=== PATIENT | female | born 1965 | race Caucasian/White ===

== ENCOUNTER 2017-02-14 19:28 | Emergency (ER) | payer OTHER ==
[2017-02-14 19:33] VITALS: RESP 18; TEMP 98.2
--- NOTE | 2017-02-14 19:43 | EDPHY ---
H & P Stated Complaint: RLQ abd pain, since today, nausea HPI/ROS: CHIEF COMPLAINT: Abdominal pain HISTORY OF PRESENT ILLNESS: This is a generally healthy 51-year-old female who presents with 5 hours of abdominal pain. It began a few hours after eating lunch. The pain has been constant and dull. The pain was initially periumbilical but now seems to be more right-sided. It is associated with nausea, but no vomiting. She has not had diarrhea. She denies dysuria, urgency , or frequency. She has not had fever. Her daughter was recently treated for strep throat and she was concerned that she might be experiencing abdominal pain related to strep pharyngitis; she has not had sore throat. She did feel more fatigued than usual over the last few days, according to her . She reports a history of lupus that was diagnosed 1/2 years ago based upon blood work. At the time she was feeling achy and fatigued. She recently discontinued the medication that she was taking for treatment of lupus. She does not know the name of this medication. REVIEW OF SYSTEMS: A ten point review of systems was performed and is negative with the exception of the items mentioned in the HPI. Source: Patient Exam Limitations: No limitations - Personal History LMP (Females 10-55): 8-14 Days Ago Current Tetanus/Diphtheria Vaccine: Unsure Current Tetanus Diphtheria and Acellular Pertussis (TDAP): Unsure - Medical/Surgical History Hx Asthma: No Hx Chronic Respiratory Disease: No Hx Diabetes: No Hx Cardiac Disease: No Hx Renal Disease: No Hx Cirrhosis: No Hx Alcoholism: No Hx HIV/AIDS: No Hx Splenectomy or Spleen Trauma: No Other PMH: PMH: denies - Social History Smoking Status: Never smoked Drug Use: None Additional Social History: She lives with her and children. No tobacco use. - Physical Exam Exam: General Appearance: Alert. Vital signs reviewed. Eyes: Pupils equal and round, no conjunctival injection, no discharge. Anicteric. ENT, Mouth: Mucous membranes are moist, no oropharyngeal erythema or edema. Neck: No lymphadenopathy, supple. Respiratory: Lungs are clear to auscultation; no wheezes, rales, or rhonchi. Cardiovascular: Regular rate and rhythm; no murmur, rub, or gallop. Gastrointestinal: Abdomen is soft and mildly tender in the right upper quadrant and mid epigastrium, no guarding no masses or organomegaly, bowel sounds normal. Skin: Warm and dry, no rashes on exposed skin, normal color. Back: Nontender to palpation over the thoracolumbar spine. No CVAT. Extremities: No lower extremity edema, no calf tenderness or swelling. Neurological: Alert and oriented. Moving all four extremities easily and equally. Psychiatric: Normal affect. Constitutional: Initial Vital Signs Temperature (C) 36.8 C 02/14/17 19:29 Heart Rate 64 02/14/17 19:29 Respiratory Rate 18 02/14/17 19:29 Blood Pressure 107/58 L 02/14/17 19:29 O2 Sat (%) 97 02/14/17 19:29 O2 Delivery Mode Room Air Allergies/Adverse Reactions: No Known Allergies Allergy (Unverified 02/14/17 19:33) Home Medications: Medication Instructions Recorded Escitalopram Oxalate [Lexapro] 20 mg PO DAILY 02/14/17 celeCOXIB [Celebrex (*)] 200 mg PO BID 02/14/17 Cholecalciferol Vit D3 [Vitamin D3 2,000 units PO DAILY 02/15/17 (*)] Herbals/Supplements -Info Only 1 ea PO DAILY 02/15/17 Salem-3 Fatty Acids [Fish Oil 1000 1,000 mg PO HS 02/15/17 mg (*)] Salem-3 Fatty Acids [Fish Oil 1000 2,000 mg PO DAILY 02/15/17 mg (*)] Hydrocodone/APAP 5/325 [[place] 1 - 2 tab PO Q4HRS PRN #30 tab 02/16/17 5/325 (*)] Medical Decision Making ED Course/Re-evaluation: 8:45 p.m. patient re-evaluated. Abdomen is soft and nontender. Her nausea is improved. She has not had vomiting. I have reviewed her labs. Nothing to suggest cholecystitis or pancreatitis. White blood cell count is not elevated.. Appendicitis seems unlikely. Her pain was not in the region of the appendix at the time of my evaluation. Urinalysis is normal. I do not suspect pyelonephritis or urinary tract infection 9:30 p.m. reassessed patient. Abdomen benign. She feels okay to go home. She will receive a prepack for Zofran at discharge and strict return precautions should her pain worsen. I highly recommended reexamination tomorrow if her pain continues. She agrees with this plan. Differential Diagnosis: Abdominal pain including but not limited to appendicitis, cholecystitis, gastritis and urinary tract infection. - Data Points Laboratory Results: Laboratory Results 02/14/17 20:04 02/14/17 20:04 Medications Given: Discontinued Medications Ondansetron HCl (Zofran) 4 mg IVP EDNOW ONE Stop: 02/14/17 19:55 Last Admin: 02/14/17 20:07 Dose: 4 mg Ondansetron HCl (Zofran Odt 4 Mg Prepack#2) 1 btl TAKEHOME EDNOW ONE Stop: 02/14/17 21:41 Last Admin: 02/14/17 21:48 Dose: 1 btl Departure - Departure Disposition: Home, Routine, Self-Care Clinical Impression: Abdominal pain Qualifiers: Abdominal location: generalized Qualified Code(s): R10.84 - Generalized abdominal pain Condition: Good Instructions: Acute Nausea and Vomiting (ED), Acute Abdominal Pain (ED) Additional Instructions: If you have the return of abdominal pain, fever, persistent vomiting, profuse diarrhea, any new or concerning symptoms--you should be re-evaluated. I am prescribing Zofran for you to use at home if needed for nausea. Referrals: OLIVIER NUNES [Other] - As per Instructions
[2017-02-14] MEDS ORDERED: ONDANSETRON 4 MG/2 ML VIAL IVP ONE (19:54)
[2017-02-14 20:10] LABS: COLOR YELLOW; LEUKOCYTE ESTERASE,URINE NEGATIVE (NEGATIVE); NITRITE,URINE NEGATIVE (NEGATIVE)
[2017-02-14 20:30] LABS: ALANINE AMINOTRANSFERASE 28 IU/L (9-52); ALBUMIN 4.5 g/dL (3.5-5.0); ALKALINE PHOSPHATASE 48 IU/L (38-126); ANION GAP 10 mEq/L (8-16); ASPARTATE AMINOTRANSFERASE 35 IU/L (14-46); BILIRUBIN,TOTAL 0.9 mg/dL (0.1-1.4); BILIRUBIN-CONJUGATED 0.5 mg/dL (0.0-0.5); BILIRUBIN-UNCONJUGATED 0.4 mg/dL (0.0-1.1); CALCIUM 8.7 mg/dL (8.5-10.4); CARBON DIOXIDE 24 mEq/l (22-31); CHLORIDE 103 mEq/L (97-110); CREATININE 0.7 mg/dL (0.6-1.0); GLOMERULAR FILTRATION RATE > 60; GLUCOSE 101 mg/dL (70-100); POTASSIUM 3.9 mEq/L (3.5-5.2); SODIUM 137 mEq/L (134-144); TOTAL PROTEIN 7.4 g/dL (6.3-8.2)
[2017-02-14 20:31] LABS: % IMMATURE GRANULYOCYTES 0.3 % (0.0-1.1); ABSOLUTE IMMATURE GRANULOCYTES 0.02 10^3/uL (0.00-0.10); ADD DIFF? NO; ADD MORPH? NO; ADD SCAN? NO; ATYPICAL LYMPHOCYTE FLAG 10 (0-99); FRAGMENT RBC FLAG 0 (0-99); HEMATOCRIT 38.3 % (38.0-47.0); HEMOGLOBIN 12.8 g/dL (12.6-16.3); LEFT SHIFT FLG 0 (0-99); LIPEMIA HEMOLYSIS FLAG 80 (0-99); MEAN CELL HEMOGLOBIN 31.6 pg (27.9-34.1); MEAN CELL HEMOGLOBIN CONCENTR. 33.4 g/dL (32.4-36.7); MEAN CELL VOLUME 94.6 fL (81.5-99.8); MEAN PLATELET VOLUME 10.7 fL (8.7-11.7); PLATELET CLUMPS FLAG 10 (0-99); PLATELET COUNT 219 10^3/uL (150-400); RED BLOOD CELL COUNT 4.05 10^6/uL (4.18-5.33); RED CELL DISTRIBUTION WIDTH 12.1 % (11.5-15.2)
[2017-02-14] MEDS ORDERED: ONDANSETRON 4MG PREPACK#2 BTL TAKEHOME ONE (21:40)
[2017-02-14 21:50] VITALS: BP 112/82; PULSE 69; O2SAT 94
[2017-02-15] MEDS ORDERED: PROPOFOL 200 MG/20 ML VIAL ONE ×2 (13:22→13:44)
[2017-02-15] MEDS ORDERED: RANITIDINE 50 MG/2 ML VIAL ONE (13:22)
[2017-02-15] MEDS ORDERED: fentaNYL 100 MCG/2 ML INJ ONE ×2 (13:22)
[2017-02-15] MEDS ORDERED: DEXAMETHASONE 4 MG/ML VIAL ONE (13:22)
[2017-02-15] MEDS ORDERED: ROCURONIUM 50 MG/5 ML VIAL ONE (13:24)
[2017-02-15] MEDS ORDERED: METOCLOPRAMIDE 10 MG/2 ML VIAL ONE (13:30)
[2017-02-15] MEDS ORDERED: SUCCINYLCHOLINE CHLORIDE*ANESTHESIA ONLY*200 MG/10 ML SYR IVP ONE (13:35)
[2017-02-15] MEDS ORDERED: ONDANSETRON 4 MG/2 ML VIAL ONE (13:58)
[2017-02-15] MEDS ORDERED: NEOSTIGMINE METHYLSULFATE 5 MG/5 ML SYR ONE (14:03)
[2017-02-15] MEDS ORDERED: GLYCOPYRROLATE 0.2 MG/1 ML VIAL ONE (14:04)
== END 2017-02-14 21:50 | disposition home or self-care (01) ==
DX: R10.84 Generalized abdominal pain (principal)
CPT/HCPCS: 96374; J0330; J1100; J2405; J2704; J2710; J2765; J2780; J3010

== ENCOUNTER 2017-02-15 10:45 | Observation (INO) | payer OTHER ==
[2017-02-15] MEDS ORDERED: NS 1,000 ML IV ONE (11:50)
[2017-02-15] MEDS ORDERED: IOPAMIDOL (ISOVUE-300) 100 ML BTL ONE (11:50)
--- NOTE | 2017-02-15 11:50 | EDPHY ---
H & P Stated Complaint: periumbilical pain with RLQ tenderness x 2 days N/V Time Seen by Provider: 02/15/17 11:38 HPI/ROS: CHIEF COMPLAINT: Worsening abdominal pain HISTORY OF PRESENT ILLNESS: The patient presents to the emergency department complaining of worsening abdominal pain. The patient was seen in the ED last night with complaints of epigastric pain nausea and vomiting. At that point time she was noted to have normal laboratory studies and urinalysis. Her examination was not felt to be consistent with appendicitis but rather gastritis. She was discharged home with a prescription for Zofran. The patient returns today with complaints of worsening pain which appears to now be localized to the right lower quadrant. The patient denies any diarrhea. She denies significant past surgical history. The patient denies dysuria. She reports her pain is a 4/10 and worsened with movement. REVIEW OF SYSTEMS: A comprehensive 10 point review of systems is otherwise negative aside from elements mentioned in the history of present illness. Source: Patient - Personal History LMP (Females 10-55): 8-14 Days Ago Current Tetanus/Diphtheria Vaccine: Unsure Current Tetanus Diphtheria and Acellular Pertussis (TDAP): Unsure - Medical/Surgical History Hx Asthma: No Hx Chronic Respiratory Disease: No Hx Diabetes: No Hx Cardiac Disease: No Hx Renal Disease: No Hx Cirrhosis: No Hx Alcoholism: No Hx HIV/AIDS: No Hx Splenectomy or Spleen Trauma: No Other PMH: PMH: denies. no surgeries - Social History Smoking Status: Never smoked - Physical Exam Exam: General Appearance: Alert, no distress Eyes: Pupils equal and round no pallor or injection ENT, Mouth: Mucous membranes moist Respiratory: There are no retractions, lungs are clear to auscultation Cardiovascular: Regular rate and rhythm Gastrointestinal: Tenderness to palpation noted in the right lower quadrant, guarding present Neurological: A&O, normal motor function, normal sensory exam, normal cranial nerves Skin: Warm and dry, no rashes Musculoskeletal: Neck is supple nontender Extremities: symmetrical, full range of motion Constitutional: Initial Vital Signs Temperature (C) 37.0 C 02/15/17 10:56 Heart Rate 77 02/15/17 10:56 Respiratory Rate 16 02/15/17 10:56 Blood Pressure 93/55 L 02/15/17 10:56 O2 Sat (%) 95 02/15/17 10:56 O2 Delivery Mode Room Air Allergies/Adverse Reactions: No Known Allergies Allergy (Unverified 02/14/17 19:33) Home Medications: Medication Instructions Recorded CeleBREX 02/14/17 Lexapro 02/14/17 Medical Decision Making - Diagnostics Imaging Results: Imaging Impressions Abdomen CT 02/15/17 11:47 Impression: Acute appendicitis. Results called and discussed with Gen Nixon, at 02/15/2017 12:16 General information for patients regarding this examination can be found at [email or web address] [facility]. If you have questions or comments about this report, please contact me at [phone] (hospital) or [phone] (cell). ED Course/Re-evaluation: The patient presents to the ED with worsening abdominal pain. Last night she had primarily epigastric pain which is now worsened and localized to the right lower quadrant. As I evaluate the patient she had does have right lower quadrant tenderness. She does have a slight leukocytosis. A CT scan of the abdomen pelvis confirms a diagnosis of acute appendicitis without evidence of obvious perforation or abscess. The patient did receive IV morphine and a L of normal saline. Consultation was made with Dr. Harrington at 12:20 p.m.. The patient will be admitted to the hospital for appendectomy. I have ordered 1 g of IV Invanz at 12:30 p.m.. The patient has been kept npo. Differential Diagnosis: Differential diagnosis considered includes appendicitis, peritonitis, perforation, obstruction - Data Points Laboratory Results: Laboratory Results 02/15/17 11:20 02/15/17 11:20 02/15/17 02/15/17 11:20 11:20 WBC 9.82 10^3/uL H 10^3/uL (3.80-9.50) RBC 4.17 10^6/uL L 10^6/uL (4.18-5.33) Hgb 13.2 g/dL g/dL (12.6-16.3) Hct 39.2 % % (38.0-47.0) MCV 94.0 fL fL (81.5-99.8) MCH 31.7 pg pg (27.9-34.1) MCHC 33.7 g/dL g/dL (32.4-36.7) RDW 12.3 % % (11.5-15.2) Plt Count 204 10^3/uL 10^3/uL (150-400) MPV 10.5 fL fL (8.7-11.7) Neut % (Auto) 84.8 % H % (39.3-74.2) Lymph % (Auto) 7.9 % L % (15.0-45.0) Whitman % (Auto) 6.8 % % (4.5-13.0) Eos % (Auto) 0.0 % L % (0.6-7.6) Baso % (Auto) 0.1 % L % (0.3-1.7) Nucleat RBC Rel Count 0.0 % % (0.0-0.2) Absolute Neuts (auto) 8.32 10^3/uL H 10^3/uL (1.70-6.50) Absolute Lymphs (auto) 0.78 10^3/uL L 10^3/uL (1.00-3.00) Absolute Monos (auto) 0.67 10^3/uL 10^3/uL (0.30-0.80) Absolute Eos (auto) 0.00 10^3/uL L 10^3/uL (0.03-0.40) Absolute Basos (auto) 0.01 10^3/uL L 10^3/uL (0.02-0.10) Absolute Nucleated RBC 0.00 10^3/uL 10^3/uL (0-0.01) Immature Gran % 0.4 % % (0.0-1.1) Immature Gran # 0.04 10^3/uL 10^3/uL (0.00-0.10) Sodium 136 mEq/L mEq/L (134-144) Potassium 3.9 mEq/L mEq/L (3.5-5.2) Chloride 101 mEq/L mEq/L (97-110) Carbon Dioxide 27 mEq/l mEq/l (22-31) Anion Gap 8 mEq/L mEq/L (8-16) BUN 14 mg/dL mg/dL (7-23) Creatinine 0.7 mg/dL mg/dL (0.6-1.0) Estimated GFR > 60 Glucose 106 mg/dL H mg/dL (70-100) Calcium 8.7 mg/dL mg/dL (8.5-10.4) Medications Given: Discontinued Medications Sodium Chloride (Ns) 1,000 mls @ 0 mls/hr IV ONCE ONE PRN Reason: Wide Open Stop: 02/15/17 11:51 Last Admin: 02/15/17 12:02 Dose: 1,000 mls Morphine Sulfate (Morphine) 4 mg IVP EDNOW ONE Stop: 02/15/17 11:52 Last Admin: 02/15/17 12:11 Dose: Not Given Departure - Departure Disposition: [facility] Inpatient Acute Clinical Impression: Acute appendicitis Condition: Good Referrals: NONE *PRIMARY CARE P,. [Primary Care Provider] - As per Instructions
[2017-02-15 12:00] LABS: % IMMATURE GRANULYOCYTES 0.4 % (0.0-1.1); ABSOLUTE IMMATURE GRANULOCYTES 0.04 10^3/uL (0.00-0.10); ADD DIFF? NO; ADD MORPH? NO; ADD SCAN? NO; ATYPICAL LYMPHOCYTE FLAG 0 (0-99); FRAGMENT RBC FLAG 0 (0-99); HEMATOCRIT 39.2 % (38.0-47.0); HEMOGLOBIN 13.2 g/dL (12.6-16.3); LEFT SHIFT FLG 0 (0-99); LIPEMIA HEMOLYSIS FLAG 80 (0-99); MEAN CELL HEMOGLOBIN 31.7 pg (27.9-34.1); MEAN CELL HEMOGLOBIN CONCENTR. 33.7 g/dL (32.4-36.7); MEAN PLATELET VOLUME 10.5 fL (8.7-11.7); PLATELET CLUMPS FLAG 10 (0-99); PLATELET COUNT 204 10^3/uL (150-400); RED BLOOD CELL COUNT 4.17 10^6/uL (4.18-5.33); RED CELL DISTRIBUTION WIDTH 12.3 % (11.5-15.2)
[2017-02-15 12:08] LABS: ANION GAP 8 mEq/L (8-16); CALCIUM 8.7 mg/dL (8.5-10.4); CARBON DIOXIDE 27 mEq/l (22-31); CHLORIDE 101 mEq/L (97-110); CREATININE 0.7 mg/dL (0.6-1.0); GLOMERULAR FILTRATION RATE > 60; GLUCOSE 106 mg/dL (70-100); POTASSIUM 3.9 mEq/L (3.5-5.2); SODIUM 136 mEq/L (134-144)
[2017-02-15] MEDS ORDERED: ERTAPENEM 1 GM in NS 100 ML IV ONE (12:21)
[2017-02-15] MEDS ORDERED: BUPIVACAINE/EPI 0.25% 30 ML SDV ONE (12:33)
--- NOTE | 2017-02-15 13:00 | GHP ---
[f rep st] HISTORY AND PHYSICAL DATE OF ADMISSION: 02/15/2017 CHIEF COMPLAINT: Abdominal pain. HISTORY OF PRESENT ILLNESS: This is an otherwise healthy 51-year-old female who presents to the emergency department this afternoon with a chief complaint of 24 hours of abdominal pain. She states that she was going about her daily routine in her usual state of health and began to have this vague tyree- epigastric pain starting yesterday. Throughout the evening and through the night. The pain got worse and now has relocated to her right lower quadrant. She was nauseated for part of this time and vomited once last night with no resolution of pain. Because of the persistence and worsening pain, she presented to the emergency department today. She denies having any fevers or chills. Currently, describes the pain as a sharp pain. Worse with palpation in the right lower quadrant without rebound or radiation. 8/10 in intensity at its worst. She denies having any other symptoms at this point in time. PAST MEDICAL HISTORY: Significant for depression. PAST SURGICAL HISTORY: She had a diastasis repair approximately 1 year ago. CURRENT MEDICATIONS: Include Lexapro and celebrex ALLERGIES: None. REVIEW OF SYSTEMS: A full 10-point review was performed and unless explicitly stated is otherwise negative. SOCIAL HISTORY: Has 2 young daughters, 2 large dogs. Works as a program instructor. Denies illicit drug use. PHYSICAL EXAM: VITAL SIGNS: Temperature 37 even, blood pressure 93/55, heart rate 77, and she is 95% on room air. GENERAL: She is alert and oriented, in no acute distress. CV: She has a regular rate and rhythm without any murmurs. LUNGS: Clear to auscultation bilaterally. ABDOMEN: Soft, nondistended. Tender to palpation in the right lower quadrant without rebound tenderness. Equivocal guarding. Previous surgical scars consistent with surgical history. EXTREMITIES: Warm and well perfused. LABORATORY DATA: Leukocytosis 9000 with left shift. Chemistries are unremarkable. IMAGING: CT scan shows a dilated fluid-filled appendix in the right lower quadrant with surrounding stranding and with an associated appendicolith. No signs for perforation. ASSESSMENT AND PLAN: A 51-year-old female with what appears to be acute noncomplicated appendicitis. I have discussed the risks, benefits, and alternatives with the patient for laparoscopic appendectomy. She wishes to proceed. She will maintain n.p.o. status. She will receive IV antibiotics and we will proceed to the operating room as time permits. /[id number]/MODL MTDD
[2017-02-15] MEDS ORDERED: MIDAZOLAM 2 MG/2 ML VIAL ONE (13:20)
[2017-02-15] MEDS ORDERED: ONDANSETRON 4 MG/2 ML VIAL IVP PRN (14:25)
[2017-02-15] MEDS ORDERED: fentaNYL 100 MCG/2 ML INJ ONE (14:27)
--- NOTE | 2017-02-15 14:29 | POSTOPPROG ---
Post Op Note Date of Operation: 02/15/17 Surgeon: Blaze Harrington Anesthesiologist: Reece Anesthesia: GET(General Endotracheal) Pre-op Diagnosis: appendicitis Post-op Diagnosis: perforated appendicitis Procedure: lap appy Findings: appendix perforated during procedure Inf/Abcess present in the surg proc area at time of surgery?: No EBL: Minimal Specimen(s): appendix
[2017-02-15] MEDS ORDERED: D5W 1/2 NS W/ 20 KCl/L 1,000 ML IV SCH (14:30)
--- NOTE | 2017-02-15 15:05 | GOP ---
[f rep st] OPERATIVE REPORT DATE OF OPERATION: 02/15/2017 SURGEON: Blaze Harrington MD EDIPHONE OPERATOR: None. ANESTHESIA: General endotracheal. ANESTHESIOLOGIST: Dr. Newell. PREOPERATIVE DIAGNOSIS: Appendicitis. POSTOPERATIVE DIAGNOSIS: Perforated appendicitis. PROCEDURE PERFORMED: FINDINGS: The appendix was indurated upon manipulating it during the case. It was found to be perf orated. No gross spillage was identified. Abdomen was copiously irrigated. SPECIMENS: Appendix. ESTIMATED BLOOD LOSS: 5 cc. DESCRIPTION OF PROCEDURE: The patient was greeted in the preoperative suite. Once again, risks, be nefits, and alternatives were discussed. Consent was signed. She was then brought back to the oper ating room, placed on the OR table in a supine position. After all anesthesia machines were on and functioning, World Health [employer] time-out was performed. General endotracheal anesthesia was then induced without incident. The patient's abdomen was then widely prepped and draped in typical sterile fashion. Antibiotics were given on-call to the operating room. I entered the abdomen via a n infraumbilical cutdown through which the Veress needle was passed. I insufflated to 15 mmHg CO2, which was well tolerated by the patient. I then subsequently through this same site inserted a 12 m m Visiport. Once successfully in the abdomen I placed 2 other 5 mm trocars under direct visualizati on. One in the suprapubic, 1 in the left lower quadrant. Once these were in I identified the appen shabana by tracing the taeniae inferiorly. At the base of the appendix I identified a window using a Cecil ibanez dissector. Once this was done, I did notice that upon manipulating the appendix it was perfo rated and there was some gross spillage of pus into that localized site. This was irrigated immedia tely and washed out. After the appendix was transected from the cecal base using a single fire of t he Endo-SHELLY stapler, in the same fashion I amputated the mesoappendix with a white load of the same stapler. Once this was done, I placed it in an EndoCatch bag and removed it. I inspected both stap le lines which were clean, dry, intact and hemostatic. There was no gross spillage of pus in the pa tient's abdomen. I then irrigated the right lower quadrant and pelvis with 1 L normal saline noting clear effluent in the suction canister. Local anesthesia was then infiltrated at all port sites wh ich were removed under direct visualization. I closed my infraumbilical site with a [id number] 0 Vicryl stitch noting excellent fascial reapproximation. The skin was then closed with running 4- 0 Monocryl. Dermabond was then placed. The patient was then extubated in the operative suite and terri yip to the PACU in satisfactory condition. DRAINS: None. COUNTS: All counts were reported as correct x2. /[id number]/MODL
[2017-02-15] MEDS: HYDROmorphONE/DILAUDID 1 MG/ML SYR IVP PRN ×2 (15:45→16:55)
[2017-02-15] MEDS: HYDROCODONE/APAP 5/325 TAB PO PRN ×2 (18:27→22:55)
[2017-02-16] MEDS: HYDROCODONE/APAP 5/325 TAB PO PRN ×2 (08:21→13:05)
[2017-02-16 08:58] VITALS: O2SAT 94
[2017-02-16] MEDS ORDERED: ESCITALOPRAM OXALATE 10 MG TAB PO SCH (09:00)
[2017-02-16] MEDS ORDERED: ERTAPENEM 1 GM in NS 100 ML IV SCH (09:00)
[2017-02-16 12:03] VITALS: BP 84/50; PULSE 64; RESP 16; TEMP 98.7
== END 2017-02-16 15:00 | disposition home or self-care (01) ==
LOC: FOB 15:37
PROVIDERS: ADMIT Surgery; ATTEND Surgery
PROC: 0DTJ4ZZ Resection of Appendix, Percutaneous Endoscopic Approach (ICD-10-PCS; principal; 2017-02-15 13:28)
DX: K35.2 Acute appendicitis with generalized peritonitis (principal); F32.9 Major depressive disorder, single episode, unspecified
CPT/HCPCS: 44970; 74177; G0378; 96365; J1170; J1335; J2250; J3010; Q9967

== ENCOUNTER → 2017-11-07 | Outpatient (CLI) | payer OTHER | LOC: FIMAGING 07:48 | PROVIDERS: ATTEND Obstetrics & Gynecology Gynecology | DX: Z12.31 Encounter for screening mammogram for malignant neoplasm of breast (principal) ==